=== PATIENT | male | born 1995 | race Caucasian/White ===

== ENCOUNTER 2018-09-23 13:18 | Emergency (ER) | payer BC, OTHER ==
[~2018-09-23] VITALS: Ht 170.2 cm; Wt 104.5 kg
[2018-09-23] MEDS ORDERED: ESCI10TA2 (13:34)
[2018-09-23] MEDS ORDERED: SULF1TAB93 PO (17:32)
[2018-09-23] MEDS ORDERED: MEDR4PAK PO (17:32)
[2018-09-23] MEDS ORDERED: BENA25CA4 PO (17:32)
[2018-09-23 17:55] VITALS: BP 138/86
== END 2018-09-23 17:56 | disposition home or self-care (01) ==
LOC: M ED 13:18
DX: L25.9 Unspecified contact dermatitis, unspecified cause (principal); L50.0 Allergic urticaria; L73.9 Follicular disorder, unspecified; F17.200 Nicotine dependence, unspecified, uncomplicated; Z79.899 Other long term (current) drug therapy

== ENCOUNTER → 2019-02-10 | Outpatient (CLI) | payer BC ==
[~2019-02-10] MED LIST: BENA25CA4 PO; ESCI10TA2; MEDR4PAK PO; SULF1TAB93 PO
--- NOTE | 2019-02-11 02:00 | REP ---
Clinical: Trauma. Technique: AP, lateral, bilateral oblique views right foot . Findings: The osseous structures and joint spaces are intact and normal. There is no evidence for acute fracture or dislocation. Surrounding soft tissues are unremarkable. No subcutaneous emphysema or radiodense foreign body. Impression: No acute fracture or dislocation. Electronically Signed by Serge Ortega MD 02/11/2019 01:52 A
--- NOTE | 2019-02-11 03:30 | REP ---
Clinical: Pain. Technique: AP, lateral, bilateral oblique views of the right ankle. Findings: Anterolateral swelling consist with inversion injury. No acute fracture or dislocation. Ankle mortise appears intact. Impression: Swelling consistent with inversion injury. Electronically Signed by Serge Ortega MD 02/11/2019 03:22 A
== END ==
LOC: M WUC 14:47
PROVIDERS: ATTEND Nurse Practitioner Family
DX: M25.471 Effusion, right ankle (principal); M25.571 Pain in right ankle and joints of right foot

== ENCOUNTER → 2019-02-14 | Outpatient (CLI) | payer BC ==
--- NOTE | 2019-02-14 12:43 | REP ---
MRI right ankle without contrast: History: Pain in the right ankle after trauma. Twisting injury. Comparison radiographs are from February 10, 2019. Technique: Axial, coronal and sagittal imaging planes were utilized. T1 and T2-weighted scans were obtained with and without fat saturation in the usual fashion. MRI findings: There is a small bone island in the central posterior talus. Cortical and medullary bone signal intensity are otherwise normal. There is no evidence of occult fracture. There is anterolateral soft tissue swelling in the extra-articular and subcutaneous soft tissues. Mild medial soft tissue swelling is also present. The anterior talofibular ligament is disrupted showing irregularity and redundancy and some adjacent fluid and edema. The posterior talofibular ligament appears intact. The anterior inferior tibiofibular ligament does not appear to be disrupted. The components of the deltoid ligament appear intact. Calcaneofibular ligament is not well seen. There is a tendon sheath effusion associated with the flexor hallucis longus tendon. This is a little more tendon sheath fluid than is usually present. No tendon disruption is appreciated medially or laterally. Peroneus longus and brevis tendons appear intact. The Achilles tendon is normal in course and contour. There is a small Achilles calcaneal spurring visible on the sagittal images. Plantar fascia is intact. Impression: Findings consistent with complete disruption of the anterior talofibular ligament. Extra-articular edema. There is a tendon sheath effusion associated with the flexor hallucis longus tendon. The anterior inferior tibiofibular ligament appears to be intact. Electronically Signed by Guillaume Zapata MD 02/14/2019 04:01 P
== END ==
LOC: M RAD 10:31
PROVIDERS: ATTEND Orthopaedic Surgery
DX: S93.431A Sprain of tibiofibular ligament of right ankle, initial encounter (principal); X58.XXXA Exposure to other specified factors, initial encounter; Y92.89 Other specified places as the place of occurrence of the external cause

== ENCOUNTER → 2021-01-18 | Outpatient (CLI) | payer BC ==
[~2021-01-18] MED LIST changes: +BACTDSTA PO; +ESCI10TA16; -ESCI10TA2; -SULF1TAB93 PO
[2021-01-18 15:52] LABS: BASO # 0.1 10^3/uL (0.0-0.2); EOS # 0.1 10^3/uL (0.0-0.5); EOS % 2.4 % (0.0-3.0); HEMATOCRIT 41.2 % (42.0-52.0); HEMOGLOBIN 14.3 g/dl (13.5-17.5); LYMPH # 3.5 10^3/uL (1.5-5.0); LYMPH % 58.1 % (24.0-44.0); MEAN CORPUSCULAR HEMOGLOBIN 29.2 pg (27.0-33.0); MEAN CORPUSCULAR HGB CONC 34.7 g/dl (32.0-36.5); MEAN CORPUSCULAR VOLUME 84.1 fl (80.0-96.0); MONO # 0.4 10^3/uL (0.0-0.8); MONO % 7.1 % (2.0-8.0); NEUTROPHILS # 1.8 10^3/uL (1.5-8.5); NEUTROPHILS % 30.9 % (36.0-66.0); PLATELET COUNT, AUTOMATED 172 10^3/uL (150-450); WHITE BLOOD COUNT 5.9 10^3/uL (4.0-10.0)
[2021-01-18 16:17] LABS: MONO REFLEX EBV VCA IgM POSITIVE (NEGATIVE)
[2021-01-18 16:19] LABS: ALBUMIN 3.9 GM/DL (3.2-5.2); ALT/SGPT 139 U/L (12-78); BILIRUBIN,TOTAL 0.7 MG/DL (0.2-1.0); BLOOD UREA NITROGEN 13 MG/DL (7-18); C REACTIVE PROTEIN QUANTITATIV 3.27 MG/DL (0.00-0.30); CALCIUM LEVEL 8.5 MG/DL (8.5-10.1); CARBON DIOXIDE LEVEL 27 MEQ/L (21-32); CHLORIDE LEVEL 105 MEQ/L (98-107); GLOMERULAR FILTRATION RATE > 60.0 (>60); GLUCOSE, FASTING 100 MG/DL (70-100); POTASSIUM SERUM 3.7 MEQ/L (3.5-5.1); SODIUM LEVEL 140 MEQ/L (136-145); TOTAL PROTEIN 7.3 GM/DL (6.4-8.2)
[2021-01-18 16:28] LABS: ERYTHROCYTE SEDIMENTATION RATE 9 mm/hr (0-15)
[2021-01-18 23:12] LABS: GC DNA AMPLIFICATION NEGATIVE (NEGATIVE)
== END ==
LOC: M PLALAB 12:40
PROVIDERS: ATTEND Physician Assistant
DX: R59.0 Localized enlarged lymph nodes (principal)

== ENCOUNTER → 2021-01-27 | Outpatient (CLI) | payer BC ==
--- NOTE | 2021-01-27 08:34 | REP ---
INDICATION: RT GROIN PAIN. COMPARISON: None. TECHNIQUE: Routine pelvic ultrasound FINDINGS: Her 1 cm right inguinal hernia. 1.5 cm lymph node noted within hernia. Adjacent lymph nodes measuring 2 cm in diameter. IMPRESSION: Right inguinal hernia containing fat. 3 adjacent lymph nodes noted. <Electronically signed by Nithin Wagner > 01/27/21 0817
== END ==
LOC: M RAD 07:16
PROVIDERS: ATTEND Physician Assistant
DX: K40.90 Unilateral inguinal hernia, without obstruction or gangrene, not specified as recurrent (principal); R59.0 Localized enlarged lymph nodes; R10.31 Right lower quadrant pain

== ENCOUNTER 2023-04-09 09:27 | Day surgery (SDC) | payer BC ==
[~2023-04-09] VITALS: Ht 170.2 cm; Wt 114.3 kg
[~2023-04-09 09:27] MED LIST changes: +LEXA1TAB PO; +OMEP40CA4 PO; +PEPT262C2 PO; +ceFAZolin SOD 2 GM in IV 1 EA IV ONE
[2023-04-09] MEDS ORDERED: ACETAMINOPHEN 1000MG 100ML IV BAG As Ordered ONE (09:36)
[2023-04-09] MEDS ORDERED: MIDAZOLAM INJ 2MG/2ML VIAL As Ordered ONE (09:36)
[2023-04-09] MEDS ORDERED: fentaNYL 100 MCG/2 ML INJECTION As Ordered ONE (09:36)
[2023-04-09] MEDS ORDERED: SUGAMMADEX SODIUM 500 MG/5 ML VIAL (BRIDION) As Ordered ONE (09:37)
[2023-04-09] MEDS ORDERED: ONDANSETRON 4MG 2ML VIAL As Ordered ONE (09:37)
[2023-04-09] MEDS ORDERED: propofoL 200 MG/20 ML VIAL As Ordered ONE (09:37)
[2023-04-09] MEDS ORDERED: dexmedeTOMIDine (4MCG/ML)200MCG/50ML BTL (PRECEDEX) As Ordered ONE (09:37)
[2023-04-09] MEDS ORDERED: KETOROLAC 60MG 2ML VIAL As Ordered ONE (09:37)
[2023-04-09] MEDS ORDERED: LIDOCAINE 2% 100MG/5ML SDV (FOR ANES.) As Ordered ONE (09:37)
[2023-04-09] MEDS ORDERED: ROCURONIUM BROMIDE 50MG/5ML VIAL As Ordered ONE (09:38)
[2023-04-09] MEDS ORDERED: LIDOCAINE 1% SDV 30ML VIAL As Ordered ONE (10:56)
[2023-04-09] MEDS ORDERED: CelecoXIB 400 MG CAP PO ONE (11:00)
[2023-04-09] MEDS ORDERED: GLYCOPYRROLATE INJ 0.2 MG/ML 2 ML VIAL As Ordered ONE (11:12)
[2023-04-09] MEDS ORDERED: oxyCODONE 5MG TAB PO PRN (12:10)
[2023-04-09] MEDS ORDERED: ONDANSETRON 4MG 2ML VIAL IV PRN (12:10)
[2023-04-09] MEDS ORDERED: fentaNYL 100 MCG/2 ML INJECTION IV PRN (12:10)
[2023-04-09] MEDS ORDERED: KETOROLAC 30 MG/ML 1ML VIAL IV PRN (12:50)
[2023-04-09] MEDS ORDERED: NORCO, ANEXSIA 5/325MG TABLET (HYDROcodone/ACETAMINOPHEN) PO PRN ×2 (12:55)
[2023-04-09 14:05] VITALS: BP 123/69; TEMP 97.2; O2SAT 96
== END 2023-04-09 14:05 | disposition home or self-care (01) ==
LOC: M SDC 09:27
PROVIDERS: ATTEND Surgery
DX: K42.0 Umbilical hernia with obstruction, without gangrene (principal); M62.08 Separation of muscle (nontraumatic), other site; I10 Essential (primary) hypertension; K21.9 Gastro-esophageal reflux disease without esophagitis; Z68.39 Body mass index [BMI] 39.0-39.9, adult; F17.220 Nicotine dependence, chewing tobacco, uncomplicated; Z79.899 Other long term (current) drug therapy
CPT/HCPCS: 49594; J0131; J0665; J0690; J1100; J1885; J2250; J2405; J3010

== ENCOUNTER → 2024-03-10 | Outpatient (REF) | payer OTHER ==
[~2024-03-10] MED LIST changes: -ceFAZolin SOD 2 GM in IV 1 EA IV ONE
== END ==
LOC: M SFHCPLAZ 17:06
PROVIDERS: ATTEND Physician Assistant Medical
DX: R10.2 Pelvic and perineal pain (principal)

== ENCOUNTER → 2024-03-11 | Outpatient (CLI) | payer OTHER | LOC: M WHC 09:37 | PROVIDERS: ATTEND Physician Assistant Medical | DX: R10.2 Pelvic and perineal pain (principal) ==

== ENCOUNTER → 2025-05-22 | Outpatient (CLI) | payer OTHER, SELFPAY ==
[~2025-05-22] MED LIST changes: -BACTDSTA PO; +SULF-8 PO
== END ==
LOC: M RAD 08:25
DX: K46.9 Unspecified abdominal hernia without obstruction or gangrene (principal)